=== PATIENT | female | born 1990 | race African-American/Black ===

== ENCOUNTER 2017-03-18 19:56 | Emergency (ER) | payer OTHER ==
[~2017-03-18 19:56] MED LIST: EMTRICITABINE/TENOFOVIR 200MG/300MG TAB PO SCH; RALTEGRAVIR 400 MG TAB PO SCH
[2017-03-18 20:06] VITALS: BP 131/78; PULSE 81; RESP 16; TEMP 98.6; O2SAT 99
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
[2017-03-18] MEDS ORDERED: EMTRICITABINE/TENOFOVIR 200MG/300MG TAB PO ONE ×2 (20:43→23:17)
[2017-03-18] MEDS ORDERED: ULIPRISTAL ACETATE 30 MG TAB PO ONE (20:43)
[2017-03-18] MEDS ORDERED: cefTRIAXone 250 MG VIAL IM ONE (20:43)
[2017-03-18] MEDS ORDERED: AZITHROMYCIN 250 MG TAB PO ONE (20:43)
[2017-03-18] MEDS ORDERED: RALTEGRAVIR 400 MG TAB PO ONE ×2 (20:43→23:17)
[2017-03-18 21:26] LABS: % IMMATURE GRANULYOCYTES 0.2 % (0.0-1.1); ABSOLUTE IMMATURE GRANULOCYTES 0.01 10^3/uL (0.00-0.10); ADD DIFF? NO; ADD MORPH? NO; ADD SCAN? NO; ATYPICAL LYMPHOCYTE FLAG 50 (0-99); FRAGMENT RBC FLAG 0 (0-99); HEMOGLOBIN 13.6 g/dL (12.6-16.3); LEFT SHIFT FLG 0 (0-99); LIPEMIA HEMOLYSIS FLAG 90 (0-99); MEAN CELL HEMOGLOBIN 30.9 pg (27.9-34.1); MEAN CELL HEMOGLOBIN CONCENTR. 35.8 g/dL (32.4-36.7); MEAN CELL VOLUME 86.4 fL (81.5-99.8); MEAN PLATELET VOLUME 9.9 fL (8.7-11.7); PLATELET CLUMPS FLAG 0 (0-99); PLATELET COUNT 329 10^3/uL (150-400); RED CELL DISTRIBUTION WIDTH 12.7 % (11.5-15.2)
[2017-03-18 21:34] LABS: ALANINE AMINOTRANSFERASE 28 IU/L (9-52); ALBUMIN 4.9 g/dL (3.5-5.0); ALKALINE PHOSPHATASE 60 IU/L (38-126); ANION GAP 12 mEq/L (8-16); ASPARTATE AMINOTRANSFERASE 26 IU/L (14-46); BILIRUBIN,TOTAL 0.5 mg/dL (0.1-1.4); BILIRUBIN-CONJUGATED 0.5 mg/dL (0.0-0.5); CALCIUM 9.9 mg/dL (8.5-10.4); CARBON DIOXIDE 21 mEq/l (22-31); CHLORIDE 107 mEq/L (97-110); CREATININE 0.6 mg/dL (0.6-1.0); GLOMERULAR FILTRATION RATE > 60; GLUCOSE 107 mg/dL (70-100); POTASSIUM 3.8 mEq/L (3.5-5.2); SODIUM 140 mEq/L (134-144); TOTAL PROTEIN 8.5 g/dL (6.3-8.2)
[2017-03-18] MEDS ORDERED: CEFTRIAXONE IM 350 MG/ML SYRINGE IM ONE (22:30)
[2017-03-18 22:45] LABS: HEPATITIS B SURFACE ANTIBODY POSITIVE (NEGATIVE)
== END 2017-03-19 00:30 | disposition home or self-care (01) ==
LOC: EEVIPCON 19:56
DX: T74.21XA Adult sexual abuse, confirmed, initial encounter (principal); Y07.59 Other non-family member, perpetrator of maltreatment and neglect
CPT/HCPCS: G0472; J0696